=== PATIENT | male | born 1970 | race Hispanic/Latino ===

== ENCOUNTER 2017-03-27 21:33 | Emergency (ER) | payer MEDICARE, MEDICAID ==
[2017-03-27 21:36] VITALS: RESP 16; TEMP 98.2; O2SAT 100
--- NOTE | 2017-03-27 21:54 | ED PDOC ---
HPI: General Adult Time Seen by Provider: 03/27/17 21:39 Chief Complaint (Nursing): Alcohol Ingestion Chief Complaint (Provider): Altered mental status History Per: Patient History/Exam Limitations: no limitations Onset/Duration Of Symptoms: Days Additional Complaint(s): Patient is a 46 year old male with a past medical history of diabetes, hypertension, and chronic pain brought in to the emergency department by his family for altered mental status, tremors, and bilateral leg swelling. Family reports seeing a progressive cognitive decline over the past few weeks in which he is unable to recall the date and has become more confused and tired. Of note , patient is on 100 mg Tramadol three times a day and started Gabepentin and Metformin last week. PCP: none provided. Past Medical History Reviewed: Historical Data, Nursing Documentation, Vital Signs Vital Signs: Last Vital Signs Temp 98.2 F 03/27/17 21:34 Pulse 119 H 03/27/17 21:34 Resp 16 03/27/17 21:34 BP 160/89 H 03/27/17 21:34 Pulse Ox 100 03/27/17 22:00 - Medical History PMH: Diabetes, HTN Other PMH: Chronic pain - Surgical History Surgical History: No Surg Hx - Family History Family History: States: Unknown Family Hx - Allergies Allergies/Adverse Reactions: Allergies Allergy/AdvReac Type Severity Reaction Status Date / Time No Known Allergies Allergy Verified 03/27/17 21:34 Review of Systems ROS Statement: Except As Marked, All Systems Reviewed And Found Negative Musculoskeletal: Positive for: Other (bilateral leg swelling) Neurological: Positive for: Altered Mental Status (progressively declining cognitive state over the past few weeks), Other (Tremors) Physical Exam - Reviewed Nursing Documentation Reviewed: Yes Vital Signs Reviewed: Yes - Physical Exam Appears: Positive for: Well, Non-toxic, No Acute Distress Head Exam: Positive for: ATRAUMATIC, NORMAL INSPECTION, NORMOCEPHALIC Skin: Positive for: Normal Color, Warm, Dry Eye Exam: Positive for: EOMI, Normal appearance, PERRL ENT: Positive for: Normal ENT Inspection Neck: Positive for: Normal, Painless ROM, Supple Cardiovascular/Chest: Positive for: Regular Rate, Rhythm. Negative for: Murmur Respiratory: Positive for: Normal Breath Sounds. Negative for: Respiratory Distress Gastrointestinal/Abdominal: Positive for: Normal Exam, Soft Back: Positive for: Normal Inspection Extremity: Positive for: Normal ROM, Swelling (bilateral pitting edema 1+ to the knees). Negative for: Pedal Edema Neurologic/Psych: Positive for: Alert, Oriented (x2), Other (Intention tremor) - ECG O2 Sat by Pulse Oximetry: 100 (RA) Pulse Ox Interpretation: Normal Medical Decision Making Medical Decision Making: Time: 21:51 Initial Impression: Altered mental status secondary to polypharmacy Initial Plan: -Glucose, blood and POC stat -Reevaluation Scribe Attestation: Documented by Sarah Kraus, acting as a scribe for Jez Anthony MD. Provider Scribe Attestation: All medical record entries made by the Scribe were at my direction and personally dictated by me. I have reviewed the chart and agree that the record accurately reflects my personal performance of the history, physical exam, medical decision making, and the department course for this patient. I have also personally directed, reviewed, and agree with the discharge instructions and disposition. Disposition - Disposition Forms: [employer] (Albanian)
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
[2017-03-27 23:02] VITALS: BP 165/87; PULSE 84
== END 2017-03-27 21:59 | disposition home or self-care (01) ==
LOC: H.ER 21:33
DX: F10.129 Alcohol abuse with intoxication, unspecified (principal); E11.9 Type 2 diabetes mellitus without complications; I10 Essential (primary) hypertension

== ENCOUNTER 2017-11-23 16:31 | Emergency (ER) | payer MEDICARE, MEDICAID ==
[2017-11-23 16:44] VITALS: BP 152/87; PULSE 84; TEMP 97.8
[2017-11-23 16:46] VITALS: BMI 43.2
[2017-11-23 16:50] VITALS: O2SAT 98
[2017-11-23 17:43] VITALS: RESP 20
[2017-11-23 17:54] LABS: VENOUS BLOOD GAS BASE EXCESS 0.1 mmol/L (0.0-2.0); VENOUS BLOOD GAS PCO2 34 mmHg (40-60); VENOUS BLOOD GAS PO2 48 mm/Hg (30-55); VENOUS BLOOD PH 7.45 (7.32-7.43)
[2017-11-23 18:05] LABS: BASO # 0.1 K/uL (0.0-0.2); BASO % 0.9 % (0.0-2.0); EOS % 0.5 % (0.0-4.0); HEMOGLOBIN 12.4 g/dL (12.0-18.0); LYMPH # 1.1 K/uL (1.0-4.3); LYMPH % 12.2 % (20.0-40.0); MEAN CELL VOLUME 90.5 fl (80.0-94.0); MEAN CORPUSCULAR HEMOGLOBIN 31.2 pg (27.0-31.0); MEAN CORPUSCULAR HGB CONC 34.4 g/dL (33.0-37.0); MONO # 0.7 K/uL (0.0-0.8); MONO % 7.7 % (0.0-10.0); NEUT # 7.1 K/uL (1.8-7.0); NEUT % 78.7 % (50.0-75.0); RBC 3.97 Mil/uL (4.40-5.90); RED CELL DISTRIBUTION WIDTH 14.4 % (11.5-14.5)
[2017-11-23 18:15] LABS: ALBUMIN 3.6 g/dL (3.5-5.0); CALCIUM 8.5 mg/dL (8.4-10.2)
[2017-11-23 18:24] LABS: INR 0.9 (0.9-1.2); PARTIAL THROMBOPLASTIN TIME 28.5 Seconds (25.6-37.1); PROTHROMBIN TIME 10.3 Seconds (9.8-13.1)
[2017-11-23 18:27] LABS: TROPONIN I 0.024 ng/mL (0.00-0.120)
--- NOTE | 2017-11-23 18:29 | ED PDOC ---
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 Reports abdominal swelling and decreased appetite. States that he feels generalized shakiness and chills. Reports he has leg swelling to both legs x 2 days. Denies nausea, vomiting, diarrhea, constipation, shortness of breath, chest pain, fever, urinary symptoms or any further medical complaints. Admits that some of his symptoms may be due to alcohol withdrawal and that he has been trying to cut down. Pt reports for treatment and findings can be discussed with parents (who are also in ER assisting with history and translation.) Father has concerns that pt not thoroughly compliant with meds and self care since he is living with his girlfriend. Client Leader: Dr. Pierce Past Medical History Reviewed: Historical Data, Nursing Documentation, Vital Signs Vital Signs: Last Vital Signs Temp 97.8 F 11/23/17 16:44 Pulse 84 11/23/17 16:44 Resp 20 11/23/17 17:40 BP 152/87 H 11/23/17 16:44 Pulse Ox 98 11/23/17 22:23 - Medical History PMH: Diabetes, HTN Other PMH: Kidney failure s/p kidney transplant, hearing loss - Surgical History Other surgeries: Kidney tranplant, nose surgery, left arm shunt from previous dialysis - Family History Family History: States: Unknown Family Hx - Social History Current smoker - smoking cessation education provided: Yes (Heavy Smoker > 10 Cigarettes Daily) Alcohol: > 2 Drinks/Day (Alcohol dependent) Drugs: Denies - Home Medications Home Medications: Ambulatory Orders Medication Instructions Recorded Ondansetron ODT [Zofran ODT] 1 odt PO Q6 PRN #20 odt 11/23/17 chlordiazePOXIDE [Chlordiazepoxide 25 mg PO Q6 PRN #10 cap 11/23/17 HCl] - Allergies Allergies/Adverse Reactions: Allergies Allergy/AdvReac Type Severity Reaction Status Date / Time No Known Allergies Allergy Verified 03/27/17 21:34 Review of Systems ROS Statement: Except As Marked, All Systems Reviewed And Found Negative (As per HPI, otherwise negative) Constitutional: Positive for: Chills, Other (loss of appetite). Negative for: Fever Cardiovascular: Negative for: Chest Pain Respiratory: Negative for: Shortness of Breath Gastrointestinal: Positive for: Abdominal Pain (abdominal discomfort and swelling). Negative for: Nausea, Vomiting, Diarrhea, Constipation Genitourinary Male: Negative for: Dysuria, Frequency, Incontinence, Hematuria Physical Exam - Reviewed Nursing Documentation Reviewed: Yes Vital Signs Reviewed: Yes - Physical Exam Appears: Positive for: Uncomfortable, In Acute Distress (both psychiatric and respiratory) Head Exam: Positive for: ATRAUMATIC, NORMOCEPHALIC Skin: Positive for: Normal Color (Ecchymosis along right lower lip) Eye Exam: Positive for: EOMI, PERRL ENT: Positive for: Other (Dry mucous membrane) Neck: Positive for: Painless ROM, Supple Cardiovascular/Chest: Positive for: Regular Rate, Rhythm. Negative for: Murmur Respiratory: Positive for: Decreased Breath Sounds, Wheezing (expiratory wheezing), Respiratory Distress, Other (tachypnea) Gastrointestinal/Abdominal: Positive for: Distended (Softly distended). Negative for: Tenderness (localized tenderness) Back: Positive for: Normal Inspection. Negative for: Decreased ROM Extremity: Positive for: Pedal Edema (Bilateral leg pitting edema), Other (mild diffuse tremor) Lymphatic: Negative for: Adenopathy Neurologic/Psych: Positive for: Alert, Mood/Affect (anxious). Negative for: Motor/Sensory Deficits - Laboratory Results Result Diagrams: 11/23/17 17:50 11/23/17 17:50 - ECG O2 Sat by Pulse Oximetry: 98 (RA) Pulse Ox Interpretation: Normal Medical Decision Making Medical Decision Making: Time: 17:20 Initial Impression: Anxiousness, abdominal discomfort, edema Differential diagnosis: Alcohol withdrawal, fluid overload, CHF, Kidney failure , pancreatitis, hepatits, anxiety Plan: Type and Screen EKG BNP CMP Magnesium Phosphorous Troponin I Urine dipstick PTT Prothrombin Time Chest X-ray Chlordiazepoxide 50mg PO electrical maintenance mechanic IV insertion Glucose, blood, POC Reevaluation Time: 1999 -- Labs showed mild renal sufficiency otherwise no clinically significant abnormalities noted -X-ray: no acute findings --Case discussed with Dr. Webber, Neprologist covering for Dr. Pierce (who is patient's private director of cardiology service line) --Patient will be called tomorrow morning to set up an appointment within 1-2 days Time: 20:26 Abdomen/Pelvis CT FINDINGS: Lung bases: No acute abnormality as visualized. ABDOMEN: Liver: Fatty infiltration of the liver. Gallbladder and bile ducts: Distended gallbladder. Pancreas: No acute abnormality as visualized. Spleen: No splenomegaly. Adrenals: No acute abnormality as visualized. Kidneys and ureters: Severe bilateral renal atrophy. Subcentimeter renal lesions associated with the bilateral kidneys, incompletely characterized on the current study. Right pelvic renal transplant. Renal vascular calcification noted. Further evaluation can be performed with dedicated ultrasound. Stomach and bowel: Evaluation limited without enteric contrast. Evidence of minimal hiatal hernia.. No obstruction. No definitive focus of mucosal thickening. No findings to suggest acute appendicitis. PELVIS: Bladder: Limited evaluation due to collapsed state. Reproductive: No acute abnormality as visualized. ABDOMEN and PELVIS: Intraperitoneal space: No free air. No significant fluid collection. Bones/joints: Degenerative changes. Soft tissues: Induration in the anterior and posterior subcutaneous tissue with evidence of edema. Correlate clinically. Vasculature: Limited evaluation without contrast. Atherosclerosis. No abdominal aortic aneurysm. Lymph nodes: No acute abnormality as visualized. IMPRESSION: Severe bilateral renal atrophy. Subcentimeter renal lesions associated with the bilateral kidneys, incompletely characterized on the current study. Right pelvic renal transplant. Renal vascular calcification noted. Further evaluation can be performed with dedicated ultrasound. Fatty infiltration of the liver. Distended gallbladder, more sensitive evaluation of the biliary system can be performed with dedicated ultrasound as warranted. Induration in the anterior and posterior subcutaneous tissue with evidence of edema. Correlate clinically. Please note evaluation for underlying visceral lesions/abnormalities are limited without intravenous contrast. Additional details/findings as above. 2029 DW father findings. Pt feeling slightly better with librium and eager to be discharged. Has appointment with Dr Pierce Friday but will try to see tomorrow. Father translated for patient. Pt's results provided directly to patient to provide to private MDs for further evaluation outpatient. Scribe Attestation: Documented by Juan Crawford acting as a scribe for Janeth Mckeon MD. MD Nelson Attestation: All medical record entries made by the Scribe were at my direction and personally dictated by me. I have reviewed the chart and agree that the record accurately reflects my personal performance of the history, physical exam, medical decision making, and the department course for this patient. I have also personally directed, reviewed, and agree with the discharge instructions and disposition. Disposition - Clinical Impression Clinical Impression: Alcohol dependence, Renal insufficiency Counseled Patient/Family Regarding: Studies Performed, Diagnosis, Need For Followup, Rx Given - Disposition Disposition: Routine/Home Disposition Time: 20:30 Condition: STABLE Additional Instructions: PLEASE CALL DR PIERCE'S OFFICE TOMORROW TO SETUP URGENT APPOINTMENT WITHIN 48 HOURS RETURN TO ER FOR WORSENING SYMPTOMS TAKE LIBRIUM NEEDED FOR SYMPTOMS OF ALCOHOL WITHDRAWAL. Prescriptions: chlordiazePOXIDE [Chlordiazepoxide HCl] 25 mg PO Q6 PRN #10 cap PRN Reason: Alcohol withdrawal symptoms Ondansetron ODT [Zofran ODT] 1 odt PO Q6 PRN #20 odt PRN Reason: Nausea/Vomiting Instructions: Alcohol Use - When Is Drinking a Problem?, Chronic Kidney Disease Forms: [employer] (Azerbaijani)
--- NOTE | 2017-11-23 20:27 | CT ---
EXAM: CT Abdomen and Pelvis Without Intravenous Contrast CLINICAL HISTORY: 47 years old, male; Pain; Abdominal pain; Generalized; Additional info: Abd pain TECHNIQUE: Axial computed tomography images of the abdomen and pelvis without intravenous contrast. All CT scans at this facility use one or more dose reduction techniques, viz.: automated exposure control; ma/kV adjustment per patient size (including targeted exams where dose is matched to indication; i.e. head); or iterative reconstruction technique. Coronal and sagittal reformatted images were created and reviewed. COMPARISON: No relevant prior studies available. FINDINGS: Lung bases: No acute abnormality as visualized. ABDOMEN: Liver: Fatty infiltration of the liver. Gallbladder and bile ducts: Distended gallbladder. Pancreas: No acute abnormality as visualized. Spleen: No splenomegaly. Adrenals: No acute abnormality as visualized. Kidneys and ureters: Severe bilateral renal atrophy. Subcentimeter renal lesions associated with the bilateral kidneys, incompletely characterized on the current study. Right pelvic renal transplant. Renal vascular calcification noted. Further evaluation can be performed with dedicated ultrasound. Stomach and bowel: Evaluation limited without enteric contrast. Evidence of minimal hiatal hernia.. No obstruction. No definitive focus of mucosal thickening. No findings to suggest acute appendicitis. PELVIS: Bladder: Limited evaluation due to collapsed state. Reproductive: No acute abnormality as visualized. ABDOMEN and PELVIS: Intraperitoneal space: No free air. No significant fluid collection. Bones/joints: Degenerative changes. Soft tissues: Induration in the anterior and posterior subcutaneous tissue with evidence of edema. Correlate clinically. Vasculature: Limited evaluation without contrast. Atherosclerosis. No abdominal aortic aneurysm. Lymph nodes: No acute abnormality as visualized. IMPRESSION: Severe bilateral renal atrophy. Subcentimeter renal lesions associated with the bilateral kidneys, incompletely characterized on the current study. Right pelvic renal transplant. Renal vascular calcification noted. Further evaluation can be performed with dedicated ultrasound. Fatty infiltration of the liver. Distended gallbladder, more sensitive evaluation of the biliary system can be performed with dedicated ultrasound as warranted. Induration in the anterior and posterior subcutaneous tissue with evidence of edema. Correlate clinically. Please note evaluation for underlying visceral lesions/abnormalities are limited without intravenous contrast. Additional details/findings as above.
--- NOTE | 2017-11-24 08:05 | CARD ---
APPROVED REPORT EKG Measurement Heart [id number] <Conclusion> Normal sinus rhythm Nonspecific T wave abnormality Prolonged QT Abnormal ECG
--- NOTE | 2017-11-24 09:02 | RAD ---
HISTORY: sob COMPARISON: No prior. TECHNIQUE: Chest PA and lateral FINDINGS: LUNGS: No active pulmonary disease. PLEURA: No significant pleural effusion identified. No pneumothorax apparent. CARDIOVASCULAR: Cardiomediastinal silhouette prominent. OSSEOUS STRUCTURES: Mild degenerative changes. VISUALIZED UPPER ABDOMEN: Normal. OTHER FINDINGS: None. IMPRESSION: No active disease.
== END 2017-11-23 20:57 | disposition home or self-care (01) ==
LOC: H.ER 16:31
DX: M79.89 Other specified soft tissue disorders (principal); F10.20 Alcohol dependence, uncomplicated; N28.9 Disorder of kidney and ureter, unspecified; Z94.0 Kidney transplant status; Z99.2 Dependence on renal dialysis; I10 Essential (primary) hypertension; F17.210 Nicotine dependence, cigarettes, uncomplicated; E11.9 Type 2 diabetes mellitus without complications

== ENCOUNTER 2018-08-11 20:16 | Emergency (ER) | payer MEDICARE, MEDICAID ==
[2018-08-11 20:16] VITALS: BMI 43.2
[2018-08-11 20:22] VITALS: BP 160/98; PULSE 100; RESP 20; TEMP 98.1; O2SAT 99
[2018-08-11] MEDS ORDERED: Albuterol-Ipratrop 3 mg / 0.5 (3 ml) UD INH STA (20:45)
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
[2018-08-11] MEDS ORDERED: Albuterol-Ipratrop 3 mg / 0.5 (3 ml) UD ONE (20:52)
== END 2018-08-11 21:20 | disposition home or self-care (01) ==
LOC: H.ER 20:16
DX: F10.129 Alcohol abuse with intoxication, unspecified (principal); R06.2 Wheezing; E11.9 Type 2 diabetes mellitus without complications; I10 Essential (primary) hypertension; Z94.0 Kidney transplant status

== ENCOUNTER 2018-12-23 14:10 | Inpatient (IN) | payer MEDICARE, MEDICAID ==
[2018-12-23 14:10] VITALS: BMI 43.2
[2018-12-23] MEDS ORDERED: Naloxone 0.4 mg/ml Inj (Adult) ONE (15:05)
[2018-12-23 15:18] LABS: ABG ALLEN TEST YES; ARTERIAL BLOOD GAS O2 SAT 99.8 % (95-98); ARTERIAL BLOOD GAS PCO2 53 mm/Hg (35-45); ARTERIAL BLOOD GAS PH 7.28 (7.35-7.45); ARTERIAL BLOOD GAS PO2 401 mm/Hg (80-100); ARTERIAL BLOOD GAS TCO2 26.5 mmol/L (22-28)
[2018-12-23] MEDS ORDERED: Etomidate 20 mg/10ml Inj IV ONE (15:19)
[2018-12-23] MEDS ORDERED: Rocuronium 10 mg/ml (5 ml) ONE (15:19)
[2018-12-23] MEDS ORDERED: Sodium Chloride 0.9% 1,000 ML IV STA ×2 (15:33→17:49)
[2018-12-23] MEDS ORDERED: Albuterol-Ipratrop 3 mg / 0.5 (3 ml) UD INH STA (15:33)
[2018-12-23] MEDS ORDERED: Albuterol-Ipratrop 3 mg / 0.5 (3 ml) UD ONE (15:46)
[2018-12-23 15:50] LABS: BASO # 0.1 K/uL (0.0-0.2); BASO % 0.6 % (0.0-2.0); EOS # 0.2 K/uL (0.0-0.7); EOS % 1.2 % (0.0-4.0); HEMOGLOBIN 13.1 g/dL (12.0-18.0); LYMPH % 20.4 % (20.0-40.0); MEAN CELL VOLUME 100.8 fl (80.0-94.0); MEAN CORPUSCULAR HEMOGLOBIN 33.2 pg (27.0-31.0); MEAN CORPUSCULAR HGB CONC 32.9 g/dL (33.0-37.0); MEAN PLATELET VOLUME 7.9 fl (7.2-11.7); MONO # 0.7 K/uL (0.0-0.8); MONO % 4.6 % (0.0-10.0); NEUT # 10.9 K/uL (1.8-7.0); NEUT % 73.2 % (50.0-75.0); NRBC % 0.1 % (0.0-0.0); RBC 3.93 Mil/uL (4.40-5.90); RED CELL DISTRIBUTION WIDTH 15.1 % (11.5-14.5); WHITE BLOOD COUNT 14.9 K/uL (4.8-10.8)
--- NOTE | 2018-12-23 15:59 | ED PDOC ---
HPI: Psych/Substance Abuse Time Seen by Provider: 12/23/18 14:56 Chief Complaint (Nursing): Alcohol Ingestion Chief Complaint (Provider): Alcohol Ingestion History Per: EMS, Family (Father over the phone) History/Exam Limitations: clinical condition (Patient is deaf with incomprehensible speech and altered) Additional Complaint(s): 48 years old male brought in by EMS after been found on stairwell in [place] with an empty bottle of vodka. Nurses notified this provider that patient is desatting and looked in respiratory distress. On initial evaluation, patient had O2Sat between 77 and 79. He is opening his eye and moaning for painful stimuli with agonal breathing. Resuscitation was immediately started and patient placed on non rebreather mask with improvement of O2sat to 100%. Patient became more awake and following commands but with incomprehensible speech. Once patient was stabilized, provider was able to hold patient's father phone numbe based on information from EMR. Father states patient has history of hypertension and renal transplant, which is failing. He also states patient is deaf. PMD: Dr. Pierce in [place] Past Medical History Reviewed: Historical Data, Nursing Documentation, Vital Signs Vital Signs: Last Vital Signs Temp 97.7 F 12/23/18 14:11 Pulse 102 H 12/23/18 14:11 Resp 24 12/23/18 14:11 BP 173/113 H 12/23/18 14:11 Pulse Ox 99 12/23/18 14:11 Primary Care Provider: Procedure,Nonphys - Medical History PMH: Diabetes, HTN - Family History Family History: States: Unknown Family Hx - Home Medications Home Medications: Ambulatory Orders Medication Instructions Recorded Albuterol Sulfate [Ventolin Hfa] 2 puff IH Q6 PRN 12/23/18 Allopurinol [Zyloprim] 300 mg PO DAILY 12/23/18 Labetalol [Trandate] 600 mg PO BID 12/23/18 azaTHIOprine [Imuran] 50 mg PO Q12 12/23/18 predniSONE [predniSONE Tab] 60 mg PO DAILY 12/23/18 - Allergies Allergies/Adverse Reactions: Allergies Allergy/AdvReac Type Severity Reaction Status Date / Time No Known Allergies Allergy Verified 08/11/18 20:18 Review of Systems Review Of Systems: ROS cannot be obtained secondary to pt's inabilty to answer questions. Physical Exam - Reviewed Nursing Documentation Reviewed: Yes Vital Signs Reviewed: Yes - Physical Exam Appears: Positive for: No Acute Distress Head Exam: Positive for: ATRAUMATIC, NORMOCEPHALIC Skin: Positive for: Normal Color, Warm, Dry Eye Exam: Positive for: Normal appearance, EOMI, PERRL ENT: Positive for: Normal ENT Inspection Neck: Positive for: Normal, Painless ROM, Supple Cardiovascular/Chest: Positive for: Regular Rate, Rhythm, Tachycardia. Negative for: Gallop Respiratory: Positive for: Decreased Breath Sounds, Other (Patient with agonal breathing). Negative for: Crackles, Wheezing Gastrointestinal/Abdominal: Positive for: Other (Patient localizing to palpation of abdomen) Extremity: Positive for: Normal ROM. Negative for: Pedal Edema, Swelling Neurological/Psych: Positive for: Awake - Laboratory Results Result Diagrams: 12/25/18 04:56 12/25/18 04:56 Lab Results: pCO2 53 mm/Hg (35-45) H 12/23/18 15:14 pO2 401 mm/Hg (80-100) H 12/23/18 15:14 HCO3 23.0 mmol/L (21-28) 12/23/18 15:14 ABG pH 7.28 (7.35-7.45) L 12/23/18 15:14 ABG Total CO2 26.5 mmol/L (22-28) 12/23/18 15:14 ABG O2 Saturation 99.8 % (95-98) H 12/23/18 15:14 ABG Base Excess -2.6 mmol/L (-2.0-3.0) L 12/23/18 15:14 Nakul Test Yes 12/23/18 15:14 ABG Potassium 4.8 mmol/L (3.6-5.2) 12/23/18 15:14 A-a O2 Difference 246.0 mm/Hg 12/23/18 15:14 Sodium 141.0 mmol/L (132-148) 12/23/18 15:14 Chloride 110.0 mmol/L (98-107) H 12/23/18 15:14 Glucose 121 mg/dL (75-110) H 12/23/18 15:14 Lactate 1.9 mmol/L (0.7-2.1) 12/23/18 15:14 FiO2 100.0 % 12/23/18 15:14 - ECG ECG Rhythm: Positive for: Sinus Tachycardia (with TBCs). Negative for: ST/T Changes (elevation or depression) Rate: 107 O2 Sat by Pulse Oximetry: 99 (RA) Pulse Ox Interpretation: Normal Medical Decision Making Medical Decision Making: Time: 1455 MDM: AMS with desaturation/respiratory distress --Improved on non rebreather --Low threshold for intubation --Labs including culture --Cardiac enzyme --EKG --Reevaluation 1730 Labs evaluated and it demonstrated elevated WBC with serum alcohol of 393 and initial lactate of 1.9, showing metabolic acidosis Patient setting well on BIPAP machine. When attempting to remove machine, patient's O2 ranged from high 80s and low 70s. Patient placed back on BIPAP [address] Pierce who is patients PMD and states takes prednisone, labetalol, lodopin, atorvastatin, allopurinol and Imuran. Doctor states patient has been to rehab multiple times and is a chronic smoker. He has upper airway sounds and wheezing but failed to follow up with bath design sales consultant for diagnosis. He has a history of protein urea and gout. He had a kidney transplant in 1984. At baseline patient has a learning disability. Patient admitted to ICU and patient is reliant on BIPAP machine. 1744 At the moment, he is not medically stable for CT scan. His parents are at bedside 1836 Discussed case at bed with Dr. Flowers and parents. Patient is awake and alert, removed from BIPAP. Patient placed on oxygen cannula and maintained an O2 saturation around 92 to 94% Approximately, 10 minutes off the BIPAP, patient began to use accessory muscles. He threatened to leave and take out his IVs. Patient given Ativan 2g to relieve agitation and placed on high flow. Scribe Attestation: Documented by Cass Hinojosa and Shruthi Angeles, acting as a scribes for Starr Lynne MD. Provider Scribe Attestation: All medical record entries made by the Scribe were at my direction and personally dictated by me. I have reviewed the chart and agree that the record accurately reflects my personal performance of the history, physical exam, medical decision making, and the department course for this patient. I have also personally directed, reviewed, and agree with the discharge instructions and disposition. Disposition - Clinical Impression Clinical Impression: Alcohol intoxication, Wheezing, Renal insufficiency - Disposition Disposition Time: 18:37 Condition: CRITICAL
--- NOTE | 2018-12-23 16:13 | RAD ---
Date of service: 12/23/2018 HISTORY: possible admission COMPARISON: 11/23/2017 TECHNIQUE: 1 view obtained. FINDINGS: LUNGS: No consolidation seen. There is vague increased low-density rounded opacities which projects over the right 3rd and 4th anterior ribs-these are not seen as such on the prior study-how much of this is due to changes in technique is unclear. It is unclear if this is due to asymmetrical coaster cartilaginous junctional calcifications or under lying interval pleural parenchymal pathology. For definitive assessment, consider noncontrast CT chest imaging. PLEURA: No significant pleural effusion identified, no pneumothorax apparent. CARDIOVASCULAR: There is presence of aortic atherosclerotic calcification on x-ray. Mild cardiomegaly. No significant appearing pulmonary venous congestion. Superior mediastinum appears full-as it did before in this AP technique. Is accentuated on the current AP compared the prior PA view. OSSEOUS STRUCTURES: No significant abnormalities. VISUALIZED UPPER ABDOMEN: Normal. OTHER FINDINGS: None. IMPRESSION: Vague increased low-density opacities projecting over the right mid lung zone and the after mentioned right 3rd and 4th anterior rib/costo cartilaginous junctions. It is unclear if this is related to asymmetrical coaster cartilaginous junctional calcifications are some interval right rib pathology here or if this is a technique or even underlying right pleural parenchymal or other right pulmonary nodular pathology. Given the large body habitus, an additional plain radiographs are believed unlikely to clarify this. Consider noncontrast CT chest for clarification Other findings as above.
[2018-12-23 16:21] LABS: ALB/GLOB RATIO 1.3 (1.0-2.1); ALBUMIN 4.3 g/dL (3.5-5.0); ALT/SGPT 25 U/L (21-72); AST/SGOT 31 U/L (17-59); BLOOD UREA NITROGEN 37 mg/dl (9-20); CALCIUM 8.7 mg/dL (8.4-10.2); GFR NON-AFRICAN AMERICAN 50; LIPASE 200 U/L (23-300)
[2018-12-23 16:22] LABS: B-TYPE NATRIURETIC PEPTIDE 118 pg/ml (0-450)
[2018-12-23] MEDS ORDERED: Azithromycin 500 MG in Sodium Chloride 0.9% 250 ML IVPB STA (17:25)
[2018-12-23 17:30] LABS: ABG ALLEN TEST YES; ARTERIAL BLOOD GAS HCO3 22.7 mmol/L (21-28); ARTERIAL BLOOD GAS O2 SAT 100.9 % (95-98); ARTERIAL BLOOD GAS PCO2 47 mm/Hg (35-45); ARTERIAL BLOOD GAS PH 7.31 (7.35-7.45); ARTERIAL BLOOD GAS PO2 148 mm/Hg (80-100); ARTERIAL BLOOD GAS TCO2 25.1 mmol/L (22-28)
[2018-12-23] MEDS ORDERED: Azithromycin 500 MG IV IVPB ONE (18:13)
[2018-12-23] MEDS ORDERED: cefTRIAXone (Rocephin) 1 gm Inj ONE (18:13)
[2018-12-23 20:59] LABS: URINE BILIRUBIN NEGATIVE (NEGATIVE); URINE BLOOD SMALL (NEGATIVE); URINE CLARITY CLEAR (Clear); URINE COLOR YELLOW (YELLOW); URINE GLUCOSE (UA) NEG (NEGATIVE); URINE LEUKOCYTE ESTERASE NEG Leu/uL (Negative); URINE PROTEIN >=500 mg/dL (NEGATIVE); URINE UROBILINOGEN 0.2-1.0 mg/dL (0.2-1.0)
[2018-12-23 21:05] LABS: BARBITURATES, UR NEGATIVE (NEGATIVE); BENZODIAZEPINES, UR NEGATIVE (NEGATIVE); OPIATES, UR NEGATIVE (NEGATIVE); PHENCYCLIDINE, UR NEGATIVE (NEGATIVE)
--- NOTE | 2018-12-23 21:18 | CP.CCUPN ---
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 After approx 90 minutes, improvement noted in mild hypercarbia and mental status with complete wakefulness and requesting to go home, removed BiPAP mask, borderline oxygenation on regular 3 LPM NC, at 91-92% SPO2, then trialed on HFNC at 60% oxygen-30LPM with 99% sat'n. Remained awake and uncooperative, demanding to go home, trying to get OOB, given Ativan 2 mg IVP for sedation. Empiric abx coverage started with Azithro/ Rocephin in the ER. Initial VS; 97.7F, BP 170/110, HR 100, RR 24 ROS: No other pertinent negs or positive on 10+ system review. Allergies: NKDA Last known Meds: Prednisone, Imuran, Allopurinol, Albuterol inh, Labetalol. Other PMSFH: Hearing loss with speech impediment. All other Nursing and physician documentation reviewed to date; no new pertinent info noted relevant to current medical problems. EXAM- HEENT: no icterus, pupils equal, 3 mm and reactive, no gaze preference, no nystagmus NECK: no visible JVD, supple, carotids equal upstroke bilat/no bruits CHEST: decreased BS bases, no wheezes audible HEART: regular, distant, tachy S1S2, no murmur audible, no rubs. ABD: soft, protuberant abdomen, no tympany, minimal distention, no tenderness; BS hypoactive EXT: +2 edema, no calf tenderness, no palpable cords, distal pulses intact and symmetrical, no cyanosis, no clubbing. NEURO: + tone, withdraws to pain all extremities, no clonus, no focal gross motor deficits. SKIN: no rashes LABS: WBC= 14.9 HGB= 13.1 with macrocytic indicies PLTs = 266K Coags: none noted. 7.28/53/401 on 100% NRBM 7.31/47/148 on BiPAP 60% O2. Lactate= 2.2 Na= 143 K= 4.8 Cl= 107 HCO3= 25 BUN/Cr= 37/1.5 BS= 117 BNP = 118 Lipase normal CXR: (my interp) mostly clear lung serrato, obscure lucencies along lung periphery near 3rd and 4th ribs. EKG: none IMPRESSION / MAJOR PROBLEMS NOW: 1. ETOH Intoxication 2. Acute Resp Insuff with Hypoxemia and Hypercapnia, 2' Hyper-reactive Airways Disease; doubt PTE, r/o Acute tracheobronchitis-pneumonitis 3. Azotemia 2' CKD with history of renal transplantation PLAN: 1. HFNC support. 2. If requires supplemental anxiolytic support with concern over resp drive, then will need airway protection and oral intubation till effects of ETOH dissipate. 3. 1:1 supervision to prevent self-injury. Too unstable with current vital signs, would Telemetry or ICU observation / monitor. 3. IVF hydration. 4. Repeat serial lactate, no clinical significant source of infection, but empiric abx started. Check Procalcitonin level. 5. Consider Pulm eval and CT Chest.
[2018-12-23] MEDS: Albuterol-Ipratrop 3 mg / 0.5 (3 ml) UD INH SCH ×2 (21:38→23:33)
[2018-12-24] MEDS ORDERED: methylPREDNISolone 60 MG in Sodium Chloride 0.9% 50 ML IV SCH (01:00)
[2018-12-24] MEDS ORDERED: Multivitamin (MVI) 10 ML, Thiamine 100 MG, Folic Acid 1 MG in Dextrose 5%/0.45% NS 1,00... IV ONE (03:45)
[2018-12-24] MEDS ORDERED: Labetalol 5mg/ml (4ml) ONE (03:46)
[2018-12-24] MEDS ORDERED: Labetalol 5mg/ml (4ml) IVP STA ×2 (03:47→11:17)
[2018-12-24] MEDS: Albuterol-Ipratrop 3 mg / 0.5 (3 ml) UD INH SCH ×6 (04:45→23:57)
[2018-12-24 04:58] LABS: ABG ALLEN TEST YES; ARTERIAL BLOOD GAS HCO3 21.8 mmol/L (21-28); ARTERIAL BLOOD GAS O2 SAT 99.4 % (95-98); ARTERIAL BLOOD GAS PCO2 37 mm/Hg (35-45); ARTERIAL BLOOD GAS PH 7.36 (7.35-7.45); ARTERIAL BLOOD GAS PO2 118 mm/Hg (80-100)
[2018-12-24 07:18] LABS: HEMOGLOBIN 12.4 g/dL (12.0-18.0); MEAN CELL VOLUME 99.3 fl (80.0-94.0); MEAN CORPUSCULAR HEMOGLOBIN 33.7 pg (27.0-31.0); MEAN CORPUSCULAR HGB CONC 33.9 g/dL (33.0-37.0); RBC 3.69 Mil/uL (4.40-5.90); RED CELL DISTRIBUTION WIDTH 14.8 % (11.5-14.5); WHITE BLOOD COUNT 12.6 K/uL (4.8-10.8)
[2018-12-24 07:31] LABS: ALB/GLOB RATIO 1.3 (1.0-2.1); ALBUMIN 4.1 g/dL (3.5-5.0); ALT/SGPT 32 U/L (21-72); AST/SGOT 34 U/L (17-59); BLOOD UREA NITROGEN 31 mg/dl (9-20); CALCIUM 8.3 mg/dL (8.4-10.2); GFR NON-AFRICAN AMERICAN 59
--- NOTE | 2018-12-24 07:48 | RAD ---
Date of service: 12/24/2018 HISTORY: f/u to r/o PNA COMPARISON: Frontal chest radiograph 01/02/2019. TECHNIQUE: 1 view obtained. FINDINGS: LUNGS: No active pulmonary disease. PLEURA: No significant pleural effusion identified, no pneumothorax apparent. CARDIOVASCULAR: No aortic atherosclerotic calcification present. Stable prominent cardiac size at least in part due to technical magnification. No pulmonary vascular congestion. OSSEOUS STRUCTURES: No significant abnormalities. VISUALIZED UPPER ABDOMEN: Normal. OTHER FINDINGS: None. IMPRESSION: No acute infiltrate, consolidation or pulmonary vascular congestion appreciated.
[2018-12-24] MEDS: Azithromycin 500 MG in Sodium Chloride 0.9% 250 ML IVPB SCH (08:20)
[2018-12-24] MEDS ORDERED: Labetalol 5 mg/ml Inj 20ML IVP STA (10:55)
--- NOTE | 2018-12-24 11:39 | CP.CCUPN ---
<Mena Hilario - Last Filed: 12/24/18 11:32> CCU Subjective - Physician Review Events Since Last Encounter (Free Text): Patient discussed on rounds, examined this am. 48 yo M with hx HTN, intermittent ETOH abuse, tobacco abuse, childhood kidney disease s/p renal transplant in 1984, on immunosuppressive therapy with prednisone and Imuran, admitted after being found unresponsive/intoxicated (EtOH level 393) and hypoxic. Upon admission, was given duonebs and solumedrol with no significant improvement, and started on BIPAP, which improved alertness and mental status, after which he was transitioned to 3 LPM NC, at 91-92% SPO2, then trialed on HFNC at 60% oxygen-30LPM with 99% saturation. Yesterday he was uncooperative and demanding to go home, however this am is calmed and more cooperative. Blood pressure has been uncontrolled; overnight received hydralazine, labetalol and clonidine and BP still with systolics in 190s-200s, however he is asymptomatic. Exam: GEN: no acute distress, HEENT: normocephalic, pupils equal and reactive, no scleral icterus NECK: no visible JVD, supple CHEST: bilateral lung sounds, no wheezing, coarse scattered sounds bilaterally HEART: regular rhythm, S1S2 ABD: soft, obese abdomen, +BS EXT: +1 edema, no calf tenderness, no cyanosis, no clubbing. NEURO: + tone, no focal gross motor deficits. SKIN: warm, dry Pertinent Labs/Imagin/9 am WBC: 12.6 HGB: 12.4; macrocytic MCV PLTs: 236K AB.36/37/118 on 60% HFNC Previous AB/8 15:14 7.28/53/401 on 100% NRBM 12/23 17:20 7.31/47/148 on BiPAP 60% O2. Lactate= 2.0 Na: 137 K 4.7 Cl: 104 HCO3: 23 BUN/Cr: 31/1.3 GLUCOSE: 210 CXR: No acute infiltrate, consolidation, or pulmonary vascular congestion appreciated. Assessment/Plan Acute Respiratory Insufficiency with Hypoxemia - Improving as evidenced by morning ABG - Continue high flow NC and monitor oxygen saturation - CXR clear, however on empiric Zithromax and rocephin for clinical pneumonia; pulm eval - Solumedrol 60 mg IV Q8hrs - Duoneb Q4 PRN Hypertension - Resume home medication trandate 100 BID - As BP uncontrolled this am; will give 40 mg in D5W as slow infusion EtOH intoxication - Banana bag, thiamine, folate - CIWA protocol - Monitor for signs/symptoms of withdrawal Diet - Heart Healthy Diet DVT prophylaxis - Lovenox 30 mg SC daily Pt discussed w/ Dr. Flowers. CCU Objective - Vital Signs / Intake & Output Vital Signs (Last 4 hours): Vital Signs Temp Pulse Resp BP Pulse Ox 12/24/18 10:00 97 H 30 H 206/113 H 98 12/24/18 08:21 24 12/24/18 08:12 98.2 F 97 H 24 206/104 H 100 Intake and Output (Last 8hrs): Intake & Output 12/23/18 12/24/18 12/24/18 22:59 06:59 14:59 Intake Total 2400 850 Output Total 1100 400 Balance 1300 450 Weight 220 lb Intake: IV 1900 500 Oral 500 350 Output: Urine 1100 400 Urethral (Jacome) 1100 400 - Medications Active Medications: Active Medications Generic Name Dose Route Start Last Admin Trade Name Freq PRN Reason Stop Dose Admin Albuterol/Ipratropium 3 ml 12/23/18 20:00 12/24/18 11:07 Duoneb 3 Mg/0.5 Mg (3 Ml) Ud INH 3 ml RQ4 BAYRON Administration Enoxaparin Sodium 40 mg 12/24/18 09:00 Lovenox SC DAILY BAYRON Protocol Azithromycin 500 mg/ Sodium 250 mls @ 250 mls/hr 12/24/18 09:00 12/24/18 08:20 Chloride IVPB 250 mls/hr DAILY BAYRON Administration Protocol Ceftriaxone Sodium 1 gm/ 100 mls @ 100 mls/hr 12/24/18 09:00 12/24/18 08:21 Sodium Chloride IVPB 100 mls/hr DAILY BAYRON Administration Protocol Labetalol HCl 100 mg 12/24/18 09:00 12/24/18 08:51 Trandate PO 100 mg BID BAYRON Administration Lorazepam 1 mg 12/23/18 19:19 12/23/18 23:34 Ativan IVP 1 mg Q4 PRN Administration Agitation Methylprednisolone 60 mg 12/24/18 01:00 12/24/18 08:52 Solu-Medrol IV 60 mg Q8 BAYRON Administration Pantoprazole Sodium 40 mg 12/23/18 19:30 12/24/18 08:26 Protonix Inj IVP 40 mg DAILY BAYRON Administration Trazodone HCl 100 mg 12/24/18 00:45 12/24/18 01:00 Desyrel PO Not Given HS BAYRON - Patient Studies Lab Studies: Lab Studies 12/24/18 12/24/18 12/24/18 Range/Units 06:55 06:55 06:00 WBC 12.6 H (4.8-10.8) K/uL RBC 3.69 L (4.40-5.90) Mil/uL Hgb 12.4 (12.0-18.0) g/dL Hct 36.6 (35.0-51.0) % MCV 99.3 H (80.0-94.0) fl MCH 33.7 H (27.0-31.0) pg MCHC 33.9 (33.0-37.0) g/dL RDW 14.8 H (11.5-14.5) % Plt Count 236 (130-400) K/uL MPV (7.2-11.7) fl Neut % (Auto) (50.0-75.0) % Lymph % (Auto) (20.0-40.0) % Pershing % (Auto) (0.0-10.0) % Eos % (Auto) (0.0-4.0) % Baso % (Auto) (0.0-2.0) % Neut # (Auto) (1.8-7.0) K/uL Lymph # (Auto) (1.0-4.3) K/uL Pershing # (Auto) (0.0-0.8) K/uL Eos # (Auto) (0.0-0.7) K/uL Baso # (Auto) (0.0-0.2) K/uL pCO2 (35-45) mm/Hg pO2 (80-100) mm/Hg HCO3 (21-28) mmol/L ABG pH (7.35-7.45) ABG Total CO2 (22-28) mmol/L ABG O2 Saturation (95-98) % ABG Base Excess (-2.0-3.0) mmol/L Nakul Test ABG Potassium (3.6-5.2) mmol/L A-a O2 Difference mm/Hg Sodium 137 (132-148) mmol/L Chloride 104 (98-107) mmol/L Glucose (75-110) mg/dL Lactate (0.7-2.1) mmol/L Vent Mode FiO2 % Potassium 4.7 (3.6-5.0) MMOL/L Carbon Dioxide 23 (22-30) mmol/L Anion Gap 15 (10-20) BUN 31 H (9-20) mg/dl Creatinine 1.3 (0.8-1.5) mg/dl Est GFR ( Amer) > 60 Est GFR (Non-Af Amer) 59 POC Glucose (mg/dL) (65-110) mg/dL Random Glucose 210 H (75-110) mg/dL Lactic Acid 1.4 (0.7-2.1) mmol/L Calcium 8.3 L (8.4-10.2) mg/dL Phosphorus 4.0 (2.5-4.5) mg/dl Magnesium 1.6 (1.6-2.3) MG/DL Total Bilirubin 1.3 (0.2-1.3) mg/dl AST 34 (17-59) U/L ALT 32 (21-72) U/L Alkaline Phosphatase 75 (38-126) U/L NT-Pro-B Natriuret Pep (0-450) pg/ml Total Protein 7.1 (6.3-8.2) G/DL Albumin 4.1 (3.5-5.0) g/dL Globulin 3.0 (2.2-3.9) gm/dL Albumin/Globulin Ratio 1.3 (1.0-2.1) Lipase (23-300) U/L Arterial Blood Potassium (3.6-5.2) mmol/L Urine Color (YELLOW) Urine Clarity (Clear) Urine pH (5.0-8.0) Ur Specific [place] (1.003-1.030) Urine Protein (NEGATIVE) mg/dL Urine Glucose (UA) (NEGATIVE) mg/dL Urine Ketones (NEGATIVE) mg/dL Urine Blood (NEGATIVE) Urine Nitrate (NEGATIVE) Urine Bilirubin (NEGATIVE) Urine Urobilinogen (0.2-1.0) mg/dL Ur Leukocyte Esterase (Negative) Mary Carmen/uL Urine RBC (Auto) (0-3) /hpf Urine Microscopic WBC (0-5) /hpf Urine Opiates Screen (NEGATIVE) Urine Methadone Screen (NEGATIVE) Ur Barbiturates Screen (NEGATIVE) Ur Phencyclidine Scrn (NEGATIVE) Ur Amphetamines Screen (NEGATIVE) U Benzodiazepines Scrn (NEGATIVE) U Oth Cocaine Metabols (NEGATIVE) U Cannabinoids Screen (NEGATIVE) Alcohol, Quantitative (0-10) mg/dl 12/24/18 12/24/18 12/23/18 Range/Units 04:48 00:59 22:30 WBC (4.8-10.8) K/uL RBC (4.40-5.90) Mil/uL Hgb (12.0-18.0) g/dL Hct (35.0-51.0) % MCV (80.0-94.0) fl MCH (27.0-31.0) pg MCHC (33.0-37.0) g/dL RDW (11.5-14.5) % Plt Count (130-400) K/uL MPV (7.2-11.7) fl Neut % (Auto) (50.0-75.0) % Lymph % (Auto) (20.0-40.0) % Pershing % (Auto) (0.0-10.0) % Eos % (Auto) (0.0-4.0) % Baso % (Auto) (0.0-2.0) % Neut # (Auto) (1.8-7.0) K/uL Lymph # (Auto) (1.0-4.3) K/uL Pershing # (Auto) (0.0-0.8) K/uL Eos # (Auto) (0.0-0.7) K/uL Baso # (Auto) (0.0-0.2) K/uL pCO2 37 (35-45) mm/Hg pO2 118 H (80-100) mm/Hg HCO3 21.8 (21-28) mmol/L ABG pH 7.36 (7.35-7.45) ABG Total CO2 22.0 (22-28) mmol/L ABG O2 Saturation 99.4 H (95-98) % ABG Base Excess -4.0 L (-2.0-3.0) mmol/L Nakul Test Yes ABG Potassium 4.6 (3.6-5.2) mmol/L A-a O2 Difference 264.0 mm/Hg Sodium 136.0 (132-148) mmol/L Chloride 109.0 H (98-107) mmol/L Glucose 171 H (75-110) mg/dL Lactate 2.0 (0.7-2.1) mmol/L Vent Mode High flow lpm FiO2 60.0 % Potassium (3.6-5.0) MMOL/L Carbon Dioxide (22-30) mmol/L Anion Gap (10-20) BUN (9-20) mg/dl Creatinine (0.8-1.5) mg/dl Est GFR ( Amer) Est GFR (Non-Af Amer) POC Glucose (mg/dL) 105 (65-110) mg/dL Random Glucose (75-110) mg/dL Lactic Acid (0.7-2.1) mmol/L Calcium (8.4-10.2) mg/dL Phosphorus (2.5-4.5) mg/dl Magnesium (1.6-2.3) MG/DL Total Bilirubin (0.2-1.3) mg/dl AST (17-59) U/L ALT (21-72) U/L Alkaline Phosphatase (38-126) U/L NT-Pro-B Natriuret Pep (0-450) pg/ml Total Protein (6.3-8.2) G/DL Albumin (3.5-5.0) g/dL Globulin (2.2-3.9) gm/dL Albumin/Globulin Ratio (1.0-2.1) Lipase (23-300) U/L Arterial Blood Potassium 4.6 (3.6-5.2) mmol/L Urine Color Yellow (YELLOW) Urine Clarity Clear (Clear) Urine pH 6.0 (5.0-8.0) Ur Specific [place] 1.015 (1.003-1.030) Urine Protein >=500 (NEGATIVE) mg/dL Urine Glucose (UA) Neg (NEGATIVE) mg/dL Urine Ketones Negative (NEGATIVE) mg/dL Urine Blood Small (NEGATIVE) Urine Nitrate Negative (NEGATIVE) Urine Bilirubin Negative (NEGATIVE) Urine Urobilinogen 0.2-1.0 (0.2-1.0) mg/dL Ur Leukocyte Esterase Neg (Negative) Mary Carmen/uL Urine RBC (Auto) 1 (0-3) /hpf Urine Microscopic WBC 1 (0-5) /hpf Urine Opiates Screen (NEGATIVE) Urine Methadone Screen (NEGATIVE) Ur Barbiturates Screen (NEGATIVE) Ur Phencyclidine Scrn (NEGATIVE) Ur Amphetamines Screen (NEGATIVE) U Benzodiazepines Scrn (NEGATIVE) U Oth Cocaine Metabols (NEGATIVE) U Cannabinoids Screen (NEGATIVE) Alcohol, Quantitative (0-10) mg/dl 12/23/18 12/23/18 12/23/18 Range/Units 20:30 17:20 15:23 WBC 14.9 H D (4.8-10.8) K/uL RBC 3.93 L (4.40-5.90) Mil/uL Hgb 13.1 (12.0-18.0) g/dL Hct 39.6 (35.0-51.0) % MCV 100.8 H D (80.0-94.0) fl MCH 33.2 H (27.0-31.0) pg MCHC 32.9 L (33.0-37.0) g/dL RDW 15.1 H (11.5-14.5) % Plt Count 266 (130-400) K/uL MPV 7.9 (7.2-11.7) fl Neut % (Auto) 73.2 (50.0-75.0) % Lymph % (Auto) 20.4 (20.0-40.0) % Pershing % (Auto) 4.6 (0.0-10.0) % Eos % (Auto) 1.2 (0.0-4.0) % Baso % (Auto) 0.6 (0.0-2.0) % Neut # (Auto) 10.9 H (1.8-7.0) K/uL Lymph # (Auto) 3.0 (1.0-4.3) K/uL Pershing # (Auto) 0.7 (0.0-0.8) K/uL Eos # (Auto) 0.2 (0.0-0.7) K/uL Baso # (Auto) 0.1 (0.0-0.2) K/uL pCO2 47 H (35-45) mm/Hg pO2 148 H (80-100) mm/Hg HCO3 22.7 (21-28) mmol/L ABG pH 7.31 L (7.35-7.45) ABG Total CO2 25.1 (22-28) mmol/L ABG O2 Saturation 100.9 H (95-98) % ABG Base Excess -2.9 L (-2.0-3.0) mmol/L Nakul Test Yes ABG Potassium 5.1 (3.6-5.2) mmol/L A-a O2 Difference 221.0 mm/Hg Sodium 143.0 (132-148) mmol/L Chloride 114.0 H (98-107) mmol/L Glucose 109 (75-110) mg/dL Lactate 2.2 H (0.7-2.1) mmol/L Vent Mode FiO2 60.0 % Potassium (3.6-5.0) MMOL/L Carbon Dioxide (22-30) mmol/L Anion Gap (10-20) BUN (9-20) mg/dl Creatinine (0.8-1.5) mg/dl Est GFR ( Amer) Est GFR (Non-Af Amer) POC Glucose (mg/dL) (65-110) mg/dL Random Glucose (75-110) mg/dL Lactic Acid (0.7-2.1) mmol/L Calcium (8.4-10.2) mg/dL Phosphorus (2.5-4.5) mg/dl Magnesium (1.6-2.3) MG/DL Total Bilirubin (0.2-1.3) mg/dl AST (17-59) U/L ALT (21-72) U/L Alkaline Phosphatase (38-126) U/L NT-Pro-B Natriuret Pep (0-450) pg/ml Total Protein (6.3-8.2) G/DL Albumin (3.5-5.0) g/dL Globulin (2.2-3.9) gm/dL Albumin/Globulin Ratio (1.0-2.1) Lipase (23-300) U/L Arterial Blood Potassium 5.1 (3.6-5.2) mmol/L Urine Color (YELLOW) Urine Clarity (Clear) Urine pH (5.0-8.0) Ur Specific [place] (1.003-1.030) Urine Protein (NEGATIVE) mg/dL Urine Glucose (UA) (NEGATIVE) mg/dL Urine Ketones (NEGATIVE) mg/dL Urine Blood (NEGATIVE) Urine Nitrate (NEGATIVE) Urine Bilirubin (NEGATIVE) Urine Urobilinogen (0.2-1.0) mg/dL Ur Leukocyte Esterase (Negative) Mary Carmen/uL Urine RBC (Auto) (0-3) /hpf Urine Microscopic WBC (0-5) /hpf Urine Opiates Screen Negative (NEGATIVE) Urine Methadone Screen Negative (NEGATIVE) Ur Barbiturates Screen Negative (NEGATIVE) Ur Phencyclidine Scrn Negative (NEGATIVE) Ur Amphetamines Screen Negative (NEGATIVE) U Benzodiazepines Scrn Negative (NEGATIVE) U Oth Cocaine Metabols Negative (NEGATIVE) U Cannabinoids Screen Negative (NEGATIVE) Alcohol, Quantitative (0-10) mg/dl 12/23/18 12/23/18 12/23/18 Range/Units 15:23 15:14 14:24 WBC (4.8-10.8) K/uL RBC (4.40-5.90) Mil/uL Hgb (12.0-18.0) g/dL Hct (35.0-51.0) % MCV (80.0-94.0) fl MCH (27.0-31.0) pg MCHC (33.0-37.0) g/dL RDW (11.5-14.5) % Plt Count (130-400) K/uL MPV (7.2-11.7) fl Neut % (Auto) (50.0-75.0) % Lymph % (Auto) (20.0-40.0) % Pershing % (Auto) (0.0-10.0) % Eos % (Auto) (0.0-4.0) % Baso % (Auto) (0.0-2.0) % Neut # (Auto) (1.8-7.0) K/uL Lymph # (Auto) (1.0-4.3) K/uL Pershing # (Auto) (0.0-0.8) K/uL Eos # (Auto) (0.0-0.7) K/uL Baso # (Auto) (0.0-0.2) K/uL pCO2 53 H (35-45) mm/Hg pO2 401 H (80-100) mm/Hg HCO3 23.0 (21-28) mmol/L ABG pH 7.28 L (7.35-7.45) ABG Total CO2 26.5 (22-28) mmol/L ABG O2 Saturation 99.8 H (95-98) % ABG Base Excess -2.6 L (-2.0-3.0) mmol/L Nakul Test Yes ABG Potassium 4.8 (3.6-5.2) mmol/L A-a O2 Difference 246.0 mm/Hg Sodium 143 141.0 (132-148) mmol/L Chloride 107 110.0 H (98-107) mmol/L Glucose 121 H (75-110) mg/dL Lactate 1.9 (0.7-2.1) mmol/L Vent Mode FiO2 100.0 % Potassium 4.8 (3.6-5.0) MMOL/L Carbon Dioxide 25 (22-30) mmol/L Anion Gap 16 (10-20) BUN 37 H (9-20) mg/dl Creatinine 1.5 (0.8-1.5) mg/dl Est GFR ( Amer) > 60 Est GFR (Non-Af Amer) 50 POC Glucose (mg/dL) 118 H (65-110) mg/dL Random Glucose 117 H (75-110) mg/dL Lactic Acid (0.7-2.1) mmol/L Calcium 8.7 (8.4-10.2) mg/dL Phosphorus (2.5-4.5) mg/dl Magnesium (1.6-2.3) MG/DL Total Bilirubin 0.9 (0.2-1.3) mg/dl AST 31 (17-59) U/L ALT 25 (21-72) U/L Alkaline Phosphatase 79 (38-126) U/L NT-Pro-B Natriuret Pep 118 (0-450) pg/ml Total Protein 7.6 (6.3-8.2) G/DL Albumin 4.3 (3.5-5.0) g/dL Globulin 3.3 (2.2-3.9) gm/dL Albumin/Globulin Ratio 1.3 (1.0-2.1) Lipase 200 (23-300) U/L Arterial Blood Potassium 4.8 (3.6-5.2) mmol/L Urine Color (YELLOW) Urine Clarity (Clear) Urine pH (5.0-8.0) Ur Specific [place] (1.003-1.030) Urine Protein (NEGATIVE) mg/dL Urine Glucose (UA) (NEGATIVE) mg/dL Urine Ketones (NEGATIVE) mg/dL Urine Blood (NEGATIVE) Urine Nitrate (NEGATIVE) Urine Bilirubin (NEGATIVE) Urine Urobilinogen (0.2-1.0) mg/dL Ur Leukocyte Esterase (Negative) Mary Carmen/uL Urine RBC (Auto) (0-3) /hpf Urine Microscopic WBC (0-5) /hpf Urine Opiates Screen (NEGATIVE) Urine Methadone Screen (NEGATIVE) Ur Barbiturates Screen (NEGATIVE) Ur Phencyclidine Scrn (NEGATIVE) Ur Amphetamines Screen (NEGATIVE) U Benzodiazepines Scrn (NEGATIVE) U Oth Cocaine Metabols (NEGATIVE) U Cannabinoids Screen (NEGATIVE) Alcohol, Quantitative 393 H* (0-10) mg/dl Laboratory Results - last 24 hr 12/23/18 12/23/18 12/23/18 14:24 15:14 15:23 WBC RBC Hgb Hct MCV MCH MCHC RDW Plt Count MPV Neut % (Auto) Lymph % (Auto) [place] % (Auto) Eos % (Auto) Baso % (Auto) Neut # (Auto) Lymph # (Auto) Pershing # (Auto) Eos # (Auto) Baso # (Auto) pCO2 53 H pO2 401 H HCO3 23.0 ABG pH 7.28 L ABG Total CO2 26.5 ABG O2 Saturation 99.8 H ABG Base Excess -2.6 L Nakul Test Yes ABG Potassium 4.8 A-a O2 Difference 246.0 Sodium 141.0 143 Chloride 110.0 H 107 Glucose 121 H Lactate 1.9 Vent Mode FiO2 100.0 Potassium 4.8 Carbon Dioxide 25 Anion Gap 16 BUN 37 H Creatinine 1.5 Est GFR ( Amer) > 60 Est GFR (Non-Af Amer) 50 POC Glucose (mg/dL) 118 H Random Glucose 117 H Lactic Acid Calcium 8.7 Phosphorus Magnesium Total Bilirubin 0.9 AST 31 ALT 25 Alkaline Phosphatase 79 NT-Pro-B Natriuret Pep 118 Total Protein 7.6 Albumin 4.3 Globulin 3.3 Albumin/Globulin Ratio 1.3 Lipase 200 Arterial Blood Potassium 4.8 Urine Color Urine Clarity Urine pH Ur Specific [place] Urine Protein Urine Glucose (UA) Urine Ketones Urine Blood Urine Nitrate Urine Bilirubin Urine Urobilinogen Ur Leukocyte Esterase Urine RBC (Auto) Urine Microscopic WBC Urine Opiates Screen Urine Methadone Screen Ur Barbiturates Screen Ur Phencyclidine Scrn Ur Amphetamines Screen U Benzodiazepines Scrn U Oth Cocaine Metabols U Cannabinoids Screen Alcohol, Quantitative 393 H* 12/23/18 12/23/18 12/23/18 15:23 17:20 20:30 WBC 14.9 H D RBC 3.93 L Hgb 13.1 Hct 39.6 MCV 100.8 H D MCH 33.2 H MCHC 32.9 L RDW 15.1 H Plt Count 266 MPV 7.9 Neut % (Auto) 73.2 Lymph % (Auto) 20.4 Pershing % (Auto) 4.6 Eos % (Auto) 1.2 Baso % (Auto) 0.6 Neut # (Auto) 10.9 H Lymph # (Auto) 3.0 Pershing # (Auto) 0.7 Eos # (Auto) 0.2 Baso # (Auto) 0.1 pCO2 47 H pO2 148 H HCO3 22.7 ABG pH 7.31 L ABG Total CO2 25.1 ABG O2 Saturation 100.9 H ABG Base Excess -2.9 L Nakul Test Yes ABG Potassium 5.1 A-a O2 Difference 221.0 Sodium 143.0 Chloride 114.0 H Glucose 109 Lactate 2.2 H Vent Mode FiO2 60.0 Potassium Carbon Dioxide Anion Gap BUN Creatinine Est GFR ( Amer) Est GFR (Non-Af Amer) POC Glucose (mg/dL) Random Glucose Lactic Acid Calcium Phosphorus Magnesium Total Bilirubin AST ALT Alkaline Phosphatase NT-Pro-B Natriuret Pep Total Protein Albumin Globulin Albumin/Globulin Ratio Lipase Arterial Blood Potassium 5.1 Urine Color Urine Clarity Urine pH Ur Specific [place] Urine Protein Urine Glucose (UA) Urine Ketones Urine Blood Urine Nitrate Urine Bilirubin Urine Urobilinogen Ur Leukocyte Esterase Urine RBC (Auto) Urine Microscopic WBC Urine Opiates Screen Negative Urine Methadone Screen Negative Ur Barbiturates Screen Negative Ur Phencyclidine Scrn Negative Ur Amphetamines Screen Negative U Benzodiazepines Scrn Negative U Oth Cocaine Metabols Negative U Cannabinoids Screen Negative Alcohol, Quantitative 12/23/18 12/24/18 12/24/18 22:30 00:59 04:48 WBC RBC Hgb Hct MCV MCH MCHC RDW Plt Count MPV Neut % (Auto) Lymph % (Auto) [place] % (Auto) Eos % (Auto) Baso % (Auto) Neut # (Auto) Lymph # (Auto) Pershing # (Auto) Eos # (Auto) Baso # (Auto) pCO2 37 pO2 118 H HCO3 21.8 ABG pH 7.36 ABG Total CO2 22.0 ABG O2 Saturation 99.4 H ABG Base Excess -4.0 L Nakul Test Yes ABG Potassium 4.6 A-a O2 Difference 264.0 Sodium 136.0 Chloride 109.0 H Glucose 171 H Lactate 2.0 Vent Mode High flow lpm FiO2 60.0 Potassium Carbon Dioxide Anion Gap BUN Creatinine Est GFR ( Amer) Est GFR (Non-Af Amer) POC Glucose (mg/dL) 105 Random Glucose Lactic Acid Calcium Phosphorus Magnesium Total Bilirubin AST ALT Alkaline Phosphatase NT-Pro-B Natriuret Pep Total Protein Albumin Globulin Albumin/Globulin Ratio Lipase Arterial Blood Potassium 4.6 Urine Color Yellow Urine Clarity Clear Urine pH 6.0 Ur Specific [place] 1.015 Urine Protein >=500 Urine Glucose (UA) Neg Urine Ketones Negative Urine Blood Small Urine Nitrate Negative Urine Bilirubin Negative Urine Urobilinogen 0.2-1.0 Ur Leukocyte Esterase Neg Urine RBC (Auto) 1 Urine Microscopic WBC 1 Urine Opiates Screen Urine Methadone Screen Ur Barbiturates Screen Ur Phencyclidine Scrn Ur Amphetamines Screen U Benzodiazepines Scrn U Oth Cocaine Metabols U Cannabinoids Screen Alcohol, Quantitative 12/24/18 12/24/18 12/24/18 06:00 06:55 06:55 WBC 12.6 H RBC 3.69 L Hgb 12.4 Hct 36.6 MCV 99.3 H MCH 33.7 H MCHC 33.9 RDW 14.8 H Plt Count 236 MPV Neut % (Auto) Lymph % (Auto) [place] % (Auto) Eos % (Auto) Baso % (Auto) Neut # (Auto) Lymph # (Auto) Pershing # (Auto) Eos # (Auto) Baso # (Auto) pCO2 pO2 HCO3 ABG pH ABG Total CO2 ABG O2 Saturation ABG Base Excess Nakul Test ABG Potassium A-a O2 Difference Sodium 137 Chloride 104 Glucose Lactate Vent Mode FiO2 Potassium 4.7 Carbon Dioxide 23 Anion Gap 15 BUN 31 H Creatinine 1.3 Est GFR ( Amer) > 60 Est GFR (Non-Af Amer) 59 POC Glucose (mg/dL) Random Glucose 210 H Lactic Acid 1.4 Calcium 8.3 L Phosphorus 4.0 Magnesium 1.6 Total Bilirubin 1.3 AST 34 ALT 32 Alkaline Phosphatase 75 NT-Pro-B Natriuret Pep Total Protein 7.1 Albumin 4.1 Globulin 3.0 Albumin/Globulin Ratio 1.3 Lipase Arterial Blood Potassium Urine Color Urine Clarity Urine pH Ur Specific [place] Urine Protein Urine Glucose (UA) Urine Ketones Urine Blood Urine Nitrate Urine Bilirubin Urine Urobilinogen Ur Leukocyte Esterase Urine RBC (Auto) Urine Microscopic WBC Urine Opiates Screen Urine Methadone Screen Ur Barbiturates Screen Ur Phencyclidine Scrn Ur Amphetamines Screen U Benzodiazepines Scrn U Oth Cocaine Metabols U Cannabinoids Screen Alcohol, Quantitative Radiology Impressions: Radiology Impressions Chest X-Ray 12/23/18 14:56 IMPRESSION: Vague increased low-density opacities projecting over the right mid lung zone and the after mentioned right 3rd and 4th anterior rib/costo cartilaginous junctions. It is unclear if this is related to asymmetrical coaster cartilaginous junctional calcifications are some interval right rib pathology here or if this is a technique or even underlying right pleural parenchymal or other right pulmonary nodular pathology. Given the large body habitus, an additional plain radiographs are believed unlikely to clarify this. Consider noncontrast CT chest for clarification Other findings as above. Chest X-Ray 12/24/18 06:00 IMPRESSION: No acute infiltrate, consolidation or pulmonary vascular congestion appreciated. Fingerstick Blood Sugar Results: 118 Critical Care Progress Note - Nutrition Nutrition: Nutrition Category Date Time Status Heart Healthy Diet [DIET] Diets 12/23/18 Dinner Active <Michele Flowers - Last Filed: 12/24/18 18:48> Assessment/Plan - Assessment and Plan (Free Text) Plan: Attestation: Patient seen and examined at the bedside with Resident Dr. Delphine Hilario; and I agree with her outline of plans and management documented above as discussed on AM rounds; reflecting my review of all applicable clinical data, and participation in the care of the patient throughout the day in ICU; today, December 24, 2018.
[2018-12-24] MEDS: Enoxaparin 40 mg Syringe SC SCH (12:00)
[2018-12-24] MEDS: Labetalol 5mg/ml (4ml) IVP PRN ×2 (15:40→22:33)
[2018-12-24] MEDS ORDERED: Sodium Chloride 3% for Inhalation 4 ML VIAL.NEB IH PRN (16:03)
[2018-12-24] MEDS ORDERED: Pneumococcal 23-Valent Vaccine IM ONE (16:03)
[2018-12-24] MEDS ORDERED: MethylPREDNISolone 40 mg Vial IV SCH (21:00)
[2018-12-25] MEDS: Labetalol 5mg/ml (4ml) IVP PRN (03:06)
[2018-12-25] MEDS: Albuterol-Ipratrop 3 mg / 0.5 (3 ml) UD INH SCH ×6 (04:06→23:14)
[2018-12-25 05:12] LABS: BASO % 0.3 % (0.0-2.0); HEMOGLOBIN 11.8 g/dL (12.0-18.0); LYMPH # 0.2 K/uL (1.0-4.3); LYMPH % 2.9 % (20.0-40.0); MEAN CELL VOLUME 99.8 fl (80.0-94.0); MEAN CORPUSCULAR HEMOGLOBIN 34.1 pg (27.0-31.0); MEAN CORPUSCULAR HGB CONC 34.2 g/dL (33.0-37.0); MEAN PLATELET VOLUME 9.7 fl (7.2-11.7); MONO # 0.1 K/uL (0.0-0.8); NEUT % 94.8 % (50.0-75.0); NRBC % 0.2 % (0.0-0.0); PLATELET COUNT 147 K/uL (130-400); RBC 3.46 Mil/uL (4.40-5.90); RED CELL DISTRIBUTION WIDTH 14.7 % (11.5-14.5); WHITE BLOOD COUNT 7.4 K/uL (4.8-10.8)
[2018-12-25 05:17] LABS: BLOOD UREA NITROGEN 30 mg/dl (9-20); CALCIUM 8.5 mg/dL (8.4-10.2); GFR NON-AFRICAN AMERICAN > 60
[2018-12-25 07:18] LABS: TOTAL CELLS COUNTED 100
[2018-12-25 07:19] LABS: LYMPHOCYTE 2 % (20-50); MONOCYTE 2 % (0-10); NEUTROPHIL 96 % (42-75); PLATELET ESTIMATE NORMAL (NORMAL)
[2018-12-25] MEDS: Enoxaparin 40 mg Syringe SC SCH (08:56)
[2018-12-25] MEDS: Azithromycin 500 MG in Sodium Chloride 0.9% 250 ML IVPB SCH (09:01)
--- NOTE | 2018-12-25 12:37 | CON ---
DATE: 12/24/2018 HISTORY OF PRESENT ILLNESS: The patient is a 48-year-old male who was referred for pulmonary evaluation because of acute hypercapnic respiratory failure. He was admitted via the emergency room after he was found intoxicated with empty bottle of vodka by his side. He was brought to the emergency room and found to be hypoxic and had a hypercapnic respiratory failure. He has a history of chronic cigarette smoking, status post right kidney transplant in 1984 and is presently on immunosuppressive therapy, prednisone and Imuran. He was placed on BiPAP in the ICU but presently he is on high flow oxygen and he is alert and oriented, seems to be responding appropriately to questions. He is hard of hearing and has some slow mentation. FAMILY HISTORY: Noncontributory. PHYSICAL EXAMINATION: GENERAL: The patient is alert, oriented to person, place, and time, asking to go home. The patient is obese, has cushingoid facial features. VITAL SIGNS: On admission, blood pressure of 170/110, with pulse of 100, respiratory rate 24 per minute, O2 sat at present is 96% on high flow oxygen but was 91% on 3 liters nasal cannula. NECK: JVP flat. Mouth shows poor hygiene. LUNGS: Poor aeration bilaterally with mild wheezing and some rales. HEART: Regular. ABDOMEN: Soft, nontender. No organomegaly. EXTREMITIES: Remarkable for 2+ pitting pedal edema. CENTRAL NERVOUS SYSTEM: The patient is alert and oriented and responds appropriately to verbal commands with no gross neuro deficits. LABORATORY DATA: Remarkable for WBC of 14.9, hemoglobin 13.1, platelet count of 266,000. ABG: He is on non-rebreathing mask, pH of 7.28, pCO2 of 63, pO2 of 401. On BiPAP, pH of 7.31, pCO2 of 47, pO2 of 148, and lactate of 2.2. Electrolytes reviewed, within normal limits except for BUN of 37, creatinine 1.5. Chest x-ray shows no acute cardiopulmonary pathology. EKG is pending. IMPRESSION: Alcohol intoxication, acute hypercapnic respiratory failure, history of renal transplantation, history of chronic cigarette smoke, one has to rule out some element of chronic obstructive pulmonary disease. PLAN: Monitor the patient in intensive care unit. Continue high flow oxygen for now. Continue aerosolized bronchodilators. Monitor blood pressure closely. IV antibiotics to combat upper respiratory tract infection. IV steroids. We will continue to follow with you. Further therapy will depend on findings. The patient is advised alcohol abstinence and smoking cessation. Fer Rowley MD
--- NOTE | 2018-12-25 12:42 | CP.PCM.PN ---
Subjective - Date & Time of Evaluation Date of Evaluation: 12/25/18 Time of Evaluation: 12:41 - Subjective Subjective: NO CHEST PAINS/SOB OOB TO CHAIR Objective - Vital Signs/Intake and Output Vital Signs (last 24 hours): Temp Pulse Resp BP Pulse Ox 98.6 F 74 22 158/89 H 98 12/25/18 08:00 12/25/18 08:57 12/25/18 08:31 12/25/18 08:57 12/25/18 08:00 Intake and Output: 12/25/18 12/25/18 06:59 18:59 Intake Total 1200 590 Output Total 2300 800 Balance -1100 -210 - Medications Medications: Current Medications Albuterol/Ipratropium (Duoneb 3 Mg/0.5 Mg (3 Ml) Ud) 3 ml INH RQ4 [facility] Last Admin: 12/25/18 12:29 Dose: 3 ml Amlodipine Besylate (Norvasc) 10 mg PO DAILY [facility] Last Admin: 12/25/18 08:57 Dose: 10 mg Enoxaparin Sodium (Lovenox) 40 mg SC DAILY [facility]; Protocol Last Admin: 12/25/18 08:56 Dose: 40 mg Folic Acid (Folic Acid) 1 mg PO DAILY [facility] Last Admin: 12/25/18 08:56 Dose: 1 mg Azithromycin 500 mg/ Sodium (Chloride) 250 mls @ 250 mls/hr IVPB DAILY [facility]; Protocol Last Admin: 12/25/18 09:01 Dose: 250 mls/hr Ceftriaxone Sodium 1 gm/ (Sodium Chloride) 100 mls @ 100 mls/hr IVPB DAILY [facility]; Protocol Last Admin: 12/25/18 08:59 Dose: 100 mls/hr Labetalol HCl (Trandate) 40 mg IVP Q4 PRN PRN Reason: Systolic Blood Pressure Last Admin: 12/25/18 03:06 Dose: 40 mg Labetalol HCl (Trandate) 200 mg PO BID [facility] Lorazepam (Ativan) 1 mg IVP Q4 PRN PRN Reason: Agitation Last Admin: 12/24/18 22:27 Dose: 1 mg Prednisone (Prednisone Tab) 60 mg PO DAILY [facility] Thiamine HCl (Vitamin B1 Tab) 100 mg PO DAILY [facility] Last Admin: 12/25/18 09:01 Dose: 100 mg Trazodone HCl (Desyrel) 100 mg PO HS [facility] Last Admin: 12/24/18 22:27 Dose: 100 mg - Labs Labs: 12/25/18 04:56 12/25/18 04:56 - Constitutional Appears: No Acute Distress - Head Exam Head Exam: ATRAUMATIC, NORMAL INSPECTION, NORMOCEPHALIC - Eye Exam Eye Exam: EOMI, Normal appearance, PERRL Pupil Exam: NORMAL ACCOMODATION, PERRL - ENT Exam ENT Exam: Mucous Membranes Moist, Normal Exam - Neck Exam Neck Exam: Full ROM, Normal Inspection. absent: Lymphadenopathy - Respiratory Exam Respiratory Exam: Clear to Ausculation Bilateral, NORMAL BREATHING PATTERN - Cardiovascular Exam Cardiovascular Exam: REGULAR RHYTHM, +S1, +S2. absent: Murmur - GI/Abdominal Exam GI & Abdominal Exam: Soft, Normal Bowel Sounds. absent: Tenderness - Rectal Exam Rectal Exam: NORMAL INSPECTION - Extremities Exam Extremities Exam: Full ROM, Normal Capillary Refill, Normal Inspection. absent: Joint Swelling, Pedal Edema - Back Exam Back Exam: NORMAL INSPECTION - Neurological Exam Neurological Exam: Alert, Awake, CN II-XII Intact, Normal Gait, Oriented x3 - Psychiatric Exam Psychiatric exam: Normal Affect, Normal Mood - Skin Skin Exam: Dry, Intact, Normal Color, Warm Assessment and Plan - Assessment and Plan (Free Text) Assessment: RESPIRATORY DISTRESS RESOLVED Plan: CONTINUE CURRENT RX
[2018-12-26] MEDS: Albuterol-Ipratrop 3 mg / 0.5 (3 ml) UD INH SCH ×4 (03:27→15:37)
[2018-12-26] MEDS: Enoxaparin 40 mg Syringe SC SCH (09:14)
[2018-12-26] MEDS: Azithromycin 500 MG in Sodium Chloride 0.9% 250 ML IVPB SCH (09:19)
--- NOTE | 2018-12-26 10:32 | CP.PCM.PN ---
Subjective - Date & Time of Evaluation Date of Evaluation: 12/26/18 Time of Evaluation: 10:32 - Subjective Subjective: CLINICALLY IMPROVED NO CHEST PAINS/SOB Objective - Vital Signs/Intake and Output Vital Signs (last 24 hours): Temp Pulse Resp BP Pulse Ox 97.6 F 80 20 178/112 H 97 12/26/18 08:19 12/26/18 09:14 12/26/18 08:19 12/26/18 09:14 12/26/18 08:19 - Medications Medications: Current Medications Albuterol/Ipratropium (Duoneb 3 Mg/0.5 Mg (3 Ml) Ud) 3 ml INH RQ4 [facility] Last Admin: 12/26/18 08:00 Dose: 3 ml Amlodipine Besylate (Norvasc) 10 mg PO DAILY [facility] Last Admin: 12/26/18 09:14 Dose: 10 mg Azathioprine (Imuran) 50 mg PO BID [facility] Last Admin: 12/26/18 09:13 Dose: 50 mg Enoxaparin Sodium (Lovenox) 40 mg SC DAILY [facility]; Protocol Last Admin: 12/26/18 09:14 Dose: 40 mg Folic Acid (Folic Acid) 1 mg PO DAILY [facility] Last Admin: 12/26/18 09:13 Dose: 1 mg Azithromycin 500 mg/ Sodium (Chloride) 250 mls @ 250 mls/hr IVPB DAILY [facility]; Protocol Last Admin: 12/26/18 09:19 Dose: 250 mls/hr Ceftriaxone Sodium 1 gm/ (Sodium Chloride) 100 mls @ 100 mls/hr IVPB DAILY [facility]; Protocol Last Admin: 12/26/18 09:18 Dose: 100 mls/hr Labetalol HCl (Trandate) 40 mg IVP Q4 PRN PRN Reason: Systolic Blood Pressure Last Admin: 12/25/18 03:06 Dose: 40 mg Labetalol HCl (Trandate) 400 mg PO BID [facility] Last Admin: 12/26/18 09:18 Dose: 400 mg Lorazepam (Ativan) 1 mg IVP Q4 PRN PRN Reason: Agitation Last Admin: 12/25/18 22:15 Dose: 1 mg Prednisone (Prednisone Tab) 60 mg PO DAILY [facility] Last Admin: 12/26/18 09:25 Dose: 60 mg Thiamine HCl (Vitamin B1 Tab) 100 mg PO DAILY [facility] Last Admin: 12/26/18 09:18 Dose: 100 mg Trazodone HCl (Desyrel) 100 mg PO HS [facility] Last Admin: 12/25/18 21:57 Dose: 100 mg - Labs Labs: 12/25/18 04:56 12/25/18 04:56 - Constitutional Appears: No Acute Distress - Head Exam Head Exam: ATRAUMATIC, NORMAL INSPECTION, NORMOCEPHALIC - Eye Exam Eye Exam: EOMI, Normal appearance, PERRL Pupil Exam: NORMAL ACCOMODATION, PERRL - ENT Exam ENT Exam: Mucous Membranes Moist, Normal Exam - Neck Exam Neck Exam: Full ROM, Normal Inspection. absent: Lymphadenopathy - Respiratory Exam Respiratory Exam: Clear to Ausculation Bilateral, Prolonged Expiratory Phase, NORMAL BREATHING PATTERN - Cardiovascular Exam Cardiovascular Exam: REGULAR RHYTHM, +S1, +S2. absent: Murmur - GI/Abdominal Exam GI & Abdominal Exam: Soft, Normal Bowel Sounds. absent: Tenderness - Rectal Exam Rectal Exam: NORMAL INSPECTION - Extremities Exam Extremities Exam: Full ROM, Normal Capillary Refill, Normal Inspection. absent: Joint Swelling, Pedal Edema - Back Exam Back Exam: NORMAL INSPECTION - Neurological Exam Neurological Exam: Alert, Awake, CN II-XII Intact, Normal Gait, Oriented x3 - Psychiatric Exam Psychiatric exam: Normal Affect, Normal Mood - Skin Skin Exam: Dry, Intact, Normal Color, Warm Assessment and Plan - Assessment and Plan (Free Text) Assessment: HYPERCAPNEIC RESP FAILURE--RESOLVED COPD-IMPROVED Plan: CONTINUE CURRENT RX
[2018-12-26 16:16] VITALS: BP 155/95; PULSE 78; RESP 18; TEMP 98; O2SAT 95
--- NOTE | 2018-12-30 23:58 | CP.PCM.HP ---
History of Present Illness - History of Present Illness History of Present Illness: CC: Alcohol ingestion, respiratory distress. HPI: 48 y/o male pt with a PMH of HTN, DM presented to the ED after being found on the steps outside, with an empty bottle of vodka. On arrival to the ED, the pt was dyspneic and was desaturating into the 70% range. After being stabilized on a non-rebreather mask, the pt was admitted to the ICU. At present, the pts breathing is non-labored on nasal cannula. PMH: Diabetes (type 2), HTN, proteinuria, gout, learning disability. PSH: Renal transplant. Allergies: NKDA. Review of Systems: reviewed and no additional remarkable complaints except intermittent dyspnea. Objective Appears: Non-toxic, No Acute Distress. Head Exam: NORMAL INSPECTION, normocephalic. Eye Exam: Normal appearance, PERRLA, EOMI. Respiratory Exam: Intermittent dyspnea. Wheezing noted throughout. Cardiovascular Exam: +S1, +S2. RRR. GI & Abdominal Exam: Soft, non-tender, non-distended. Neurological Exam: AAOx3. Psychiatric exam: Calm and cooperative. Skin Exam: Pallor, Warm, Dry. 2+ BLE edema. Assessment/Impression/Plan: 1.) Respiratory distress -BIPAP as needed, pt may need mechanical intubation of worsening of breathing + withdrawal symptoms. -1:1 safety observation. -Anxiolytics for relief of acute withdrawal symptoms. -Empiric IV antibiotics- Rocephin. -Continue treatment. Present on Admission - Present on Admission Any Indicators Present on Admission: No Past Patient History - Infectious Disease Hx of Infectious Diseases: None - Past Social History Smoking Status: Light Smoker < 10 Cigarettes Daily - CARDIAC Hx Hypertension: Yes - HEENT Hx Deafness: Yes - RENAL Other/Comment: Kidney transplant 1984 - MUSCULOSKELETAL/RHEUMATOLOGICAL Hx Falls: No - PSYCHIATRIC Hx Substance Use: Yes - SURGICAL HISTORY Other/Comment: Kidney transplant - ANESTHESIA Hx Anesthesia: Yes Hx Anesthesia Reactions: No Meds Allergies/Adverse Reactions: Allergies Allergy/AdvReac Type Severity Reaction Status Date / Time No Known Allergies Allergy Verified 08/11/18 20:18 Results - Vital Signs Recent Vital Signs: Last Vital Signs Temp 98 F 12/26/18 16:15 Pulse 78 12/26/18 16:15 Resp 18 12/26/18 16:15 BP 155/95 H 12/26/18 16:15 Pulse Ox 95 12/26/18 16:15 - Labs Result Diagrams: 12/25/18 04:56 12/25/18 04:56 Assessment & Plan (1) Alcohol abuse Status: Acute (2) Wheezing Status: Acute
== END 2018-12-26 17:36 | disposition home or self-care (01) | DRG 896 ==
LOC: H.ER 14:10 → H.ERHOLD 17:21 → H.ICU/CCU 21:31 → H.MEDSURG1 12-25 18:15
PROVIDERS: ADMIT Family Medicine; ATTEND Family Medicine
PROC: 5A09357 Assistance with Respiratory Ventilation, Less than 24 Consecutive Hours, Continuous Positive Airway Pressure (ICD-10-PCS; principal; 2018-12-23)
PROC: 3E0F7GC Introduction of Other Therapeutic Substance into Respiratory Tract, Via Natural or Artificial Opening (ICD-10-PCS; 2018-12-23)
PROC: 3E0234Z Introduction of Serum, Toxoid and Vaccine into Muscle, Percutaneous Approach (ICD-10-PCS; 2018-12-24)
DX: F10.129 Alcohol abuse with intoxication, unspecified (principal); J96.01 Acute respiratory failure with hypoxia; J18.9 Pneumonia, unspecified organism; J96.02 Acute respiratory failure with hypercapnia; E87.2 Acidosis; Z94.0 Kidney transplant status; Y90.8 Blood alcohol level of 240 mg/100 ml or more; N28.89 Other specified disorders of kidney and ureter; J44.9 Chronic obstructive pulmonary disease, unspecified; E11.9 Type 2 diabetes mellitus without complications; I10 Essential (primary) hypertension; H91.90 Unspecified hearing loss, unspecified ear; M10.9 Gout, unspecified; F81.9 Developmental disorder of scholastic skills, unspecified; Z23 Encounter for immunization; F17.210 Nicotine dependence, cigarettes, uncomplicated; Z79.899 Other long term (current) drug therapy